=== PATIENT | male | born 1950 | race Caucasian/White ===

== ENCOUNTER 2018-03-09 23:09 | Emergency (ER) | payer MEDICARE, MEDICAID ==
[~2018-03-09] VITALS: Ht 167.6 cm; Wt 84.0 kg
--- NOTE | 2018-03-09 23:29 | NUR ---
soaking pt's right foot in warm soapy water
--- NOTE | 2018-03-09 23:44 | NUR ---
ABX OINTMENT AND BANDAGE APPLIED AFTER HEEL WASHED/DRIED.
== END 2018-03-10 00:16 | disposition home or self-care (01) ==
LOC: ER 23:09
DX: S91.311A Laceration without foreign body, right foot, initial encounter (principal); Z56.0 Unemployment, unspecified; Z88.0 Allergy status to penicillin; Z88.5 Allergy status to narcotic agent; X58.XXXA Exposure to other specified factors, initial encounter; Y93.89 Activity, other specified; Y92.89 Other specified places as the place of occurrence of the external cause; Y99.8 Other external cause status
CPT/HCPCS: 99283

== ENCOUNTER 2018-04-17 11:23 | Inpatient (IN) | payer MEDICARE, MEDICAID | END 2018-04-20 16:00 | disposition home health service (06) | LOC: ER 11:23 → ED HOLD 13:04 → PCU 3S 17:50 | DX: N17.9 Acute kidney failure, unspecified (principal); E11.00 Type 2 diabetes mellitus with hyperosmolarity without nonketotic hyperglycemic-hyperosmolar coma (NKHHC); I10 Essential (primary) hypertension; E11.42 Type 2 diabetes mellitus with diabetic polyneuropathy; E86.0 Dehydration ==

== ENCOUNTER 2018-04-20 23:05 | Emergency (ER) | payer MEDICARE, MEDICAID ==
[~2018-04-20] VITALS: Ht 167.6 cm; Wt 82.3 kg
[~2018-04-20 23:05] MED LIST: ASPI81TA52 PO; ATOR20TA66 PO; GABA100C PO; INSU100V11 SQ; LANTUS SQ; LOSA50TA64 PO; NO HOME MEDS
[2018-04-20 23:11] VITALS: BP 119/91
[2018-04-20] MEDS ORDERED: gabapentin 100mg capsule PO ONE (23:40)
[2018-04-20] MEDS ORDERED: insulin regular, human 10 units/0.1 ml syringe SQ ONE (23:40)
[2018-04-20] MEDS ORDERED: acetaminophen 325mg tablet PO ONE (23:40)
== END 2018-04-21 00:40 | disposition home or self-care (01) ==
LOC: ER 23:06
DX: E11.21 Type 2 diabetes mellitus with diabetic nephropathy (principal); E11.65 Type 2 diabetes mellitus with hyperglycemia; E11.42 Type 2 diabetes mellitus with diabetic polyneuropathy; Z56.0 Unemployment, unspecified; Z88.0 Allergy status to penicillin; Z88.5 Allergy status to narcotic agent; Z79.82 Long term (current) use of aspirin; Z79.4 Long term (current) use of insulin
CPT/HCPCS: 82948; 96372; 99283; J1815